=== PATIENT | male | born 1955 | race Caucasian/White ===

== ENCOUNTER → 2019-03-23 09:09 | Day surgery (SDC) | payer MEDICARE ==
[~2019-03-23 09:09] MED LIST: Benzocaine/Butamben/Tetracain (CETACAINE - SINGLE USE) 5 gm TOPICAL ONE; Buffered Lidocaine 1% SYRIN* 1 ML/SYRINGE INTRADERM ONE; Dexamethasone IV* 4 MG/ML 1 ML (4 MG) IV SLOW PU ONE; Dexamethasone IV* 4 MG/ML 1 ML (4 MG) ONE; Famotidine IV* 10 MG/ML 2 ML (20 mg) IV ONE; Famotidine IV* 10 MG/ML 2 ML (20 mg) ONE; Lactated Ringers 1000 ML Bag* 1,000 ML IV SCH; Lidocaine 1% INJ* 10 MG/ML 30 ML SDV ONE; Lidocaine 2% JELLY* 6 ML JELLY TOPICAL ONE; Lidocaine 2% PF * 5 ML VIAL ONE; Lidocaine 2% PF* 10 ML AMP ONE; Ondansetron INJ* 2 MG/ML VIAL ONE; Propofol* 10 MG/ML 20 ML BTL ONE; ROPIVACAINE 5 MG/ML 30 ML BTL (0.5%) ONE; Rocuronium* 10 MG/ML VIAL ONE; Sugammadex * 200 MG/2 ML VIAL IV PUSH ONE; fentaNYL* 50 MCG/ML 2 ML VIAL (100 MCG VIAL) ONE
--- NOTE | 2019-03-23 12:35 | PRO ---
BRONCHOSCOPY REPORT: DATE OF PROCEDURE: 03/23/19 TIME OF PROCEDURE: Around 11:30 a.m. DESCRIPTION OF PROCEDURE: Informed consent was obtained for bronchoscopy, bronchoalveolar lavage. T he patient was taken to the operating room. The patient was intubated by Anesthesia. The patient wa s given paralytics, bronchoscope was advanced through the endotracheal tube. We examined the right u pper lobe, with no endobronchial lesions and normal secretions. The right middle lobe also with no e ndobronchial lesions, normal secretions, normal mucosa. Right lower lobe with no endobronchial lesio ns, normal mucosa, no endobronchial secretions. The left upper lobe was examined, no endobronchial l esions, normal mucosa, normal secretions, slight white colored secretions. The left lower lobe was u nremarkable, no endobronchial lesions, normal mucosa, normal secretions. The trachea was also sharp, bernard looked normal. Bronchoscope was then advanced to the right middle lobe, medial segment. We instilled about 100 mL of saline. We re-suctioned out about 40 mL of frothy fluid. Otherwise the pr ocedure went well. Bronchoscope was withdrawn and then the patient was extubated by Anesthesia. [id number] #: [id number]
[2019-03-23 13:33] VITALS: BP 119/89
== END | disposition home or self-care (01) ==
LOC: OR 09:09
PROVIDERS: ATTEND Internal Medicine
DX: J45.998 Other asthma (principal); R91.1 Solitary pulmonary nodule; Z86.711 Personal history of pulmonary embolism; Z79.01 Long term (current) use of anticoagulants; K51.90 Ulcerative colitis, unspecified, without complications; Z85.46 Personal history of malignant neoplasm of prostate; Z87.442 Personal history of urinary calculi
CPT/HCPCS: 87070; 87077; 87102; 87116; 87186; 87205; 87206; 88112; 88305; J1100; J2001; J2405; J2704; J2795; J3010